=== PATIENT | female | born 1985 ===

== ENCOUNTER 2025-02-24 10:00 | Day surgery (SDC) | payer OTHER ==
[2025-02-24] MEDS ORDERED: CEFOXITIN SODIUM 2,000 MG VIAL IV ONE (10:16)
[2025-02-24] MEDS ORDERED: LIDOCAINE HCL 1%/EPINEPHRINE 20ML VIAL IJ ONE (12:47)
[2025-02-24] MEDS ORDERED: SUGAMMADEX SODIUM 200 MG/2 ML VIAL IV ONE ×2 (12:47→13:34)
[2025-02-24] MEDS ORDERED: PEPCID AC20 MG PO (14:27)
[2025-02-24] MEDS ORDERED: ZOFRAN8 MG PO (14:28)
[2025-02-24] MEDS ORDERED: PERCOCET 5-3251 EACH PO (14:28)
[2025-02-24] MEDS ORDERED: DICY20TA PO (14:28)
== END 2025-02-24 18:15 | disposition home or self-care (01) ==
LOC: CIR.AMB 10:00
PROVIDERS: ATTEND Surgery
DX: K80.10 Calculus of gallbladder with chronic cholecystitis without obstruction (principal)